=== PATIENT | male | born 1970 | race African-American/Black ===

== ENCOUNTER 2017-10-07 21:04 | Inpatient (IN) | payer OTHER ==
[2017-10-07 21:31] VITALS: BMI 26.6
[2017-10-07] MEDS ORDERED: MELATONIN 5 MG TABLETS PO PRN (22:00)
--- NOTE | 2017-10-07 22:29 | HP ---
COWS - Scale Resting Pulse: 0= [place] 80 or Below Sweatin= Beads of Sweat on Face Restless Observation: 5= Unable to Sit Still Pupil Size: 1= Pupils >than Normal Bone or Joint Aches: 4=Acute Joint/Muscle Pain Runny Nose/ Eye Tearin= Runny Nose/Eyes GI Upset > 30mins: 2= Nausea/Diarrhea Tremor Observation: 4= Gross Tremor/Twitching Yawning Observation: 1= 1-2x During Session Anxiety or Irritability: 4=Extreme Anxiety Goose Flesh Skin: 0=Smooth Skin COWS Score: 26 Admission [facility] Chief Complaint: C/O WITHDRAWAL SX'S SEEKING DETOX Allergies/Adverse Reactions: Allergies Allergy/AdvReac Type Severity Reaction Status Date / Time No Known Allergies Allergy Verified 10/07/17 22:03 History of Present Illness: 47 Y.O. MALE WITH HX/O OPIOID DEPENDENCE FOR THE PAST YEAR HERE FOR DETOX. CLIENT IS REFERRED BY [facility] FOR C/O WITHDRAWAL SX'S. CLIENT STATES THIS IS HIS FIRST DETOX. DENIES ANY SIGNIFICANT PERIOD OF CLEAN TIME. DENIES HX/ O O.OD. SEIZURES, SI/HI. PMHX: DENIES PSYCH: BIPOLAR Exam Limitations: No Limitations - Ebola screening Have you traveled outside of the country in the last 21 days: No (N) Have you had contact with anyone from an Ebola affected area: No Have you been sick,other than usual withdrawal symptoms: No Do you have a fever: No - Review of Systems Constitutional: Chills, Loss of Appetite, Malaise, Night Sweats, Changes in sleep EENT: reports: Tearing, Nose Congestion, Dental Problems (MISSING TEETH) Respiratory: reports: No Symptoms reported Cardiac: reports: No Symptoms Reported GI: reports: Nausea, Poor Appetite, Poor Fluid Intake, Abdominal cramping : reports: No Symptoms Reported Musculoskeletal: reports: Back Pain, Joint Pain Integumentary: reports: No Symptoms Reported Neuro: reports: No Symptoms reported Endocrine: reports: No Symptoms Reported Hematology: reports: No Symptoms Reported Psychiatric: reports: Anxious Other Systems: Reviewed and Negative Patient History - Patient Medical History Hx Anemia: No Hx Asthma: No Hx Chronic Obstructive Pulmonary Disease (COPD): No Hx Cancer: No Hx Cardiac Disorders: No Hx Congestive Heart Failure: No Hx Hypertension: No Hx Hypercholesterolemia: No Hx Pacemaker: No HX Cerebrovascular Accident: No Hx Seizures: No Hx Dementia: No Hx Diabetes: No Hx Gastrointestinal Disorders: No Hx Liver Disease: No Hx Genitourinary Disorders: No Hx Sexually Transmitted Disorders: No Hx Renal Disease (ESRD): No Hx Thyroid Disease: No Hx Human Immunodeficiency Virus (HIV): No Hx Hepatitis C: No Hx Depression: No Hx Suicide Attempt: No Hx Bipolar Disorder: Yes Hx Schizophrenia: No Other Medical History: DENIES - Patient Surgical History Past Surgical History: No - PPD History Previous Implant?: Yes Documented Results: Negative w/o proof Implanted On Prior [facility] Admission?: No PPD to be Administered?: Yes - Smoking Cessation Smoking history: Current every day smoker Have you smoked in the past 12 months: Yes Aproximately how many cigarettes per day: 10 Hx Chewing Tobacco Use: No Initiated information on smoking cessation: Yes 'Breaking Loose' booklet given: 10/07/17 - Substance & Tx. History Hx Alcohol Use: No Hx Substance Use: Yes Substance Use Type: Heroin, Marijuana (K2) Hx Substance Use Treatment: No - Substances Abused Heroin Route: Inhalation Frequency: Daily Amount used: 1 bag Age of first use: 46 Date of Last Use: 10/05/17 K2 Route: Smoking Frequency: Daily Amount used: 1 bag Age of first use: 46 Date of Last Use: 10/05/17 Family Disease History - Family Disease History Family History: Denies Admission Physical Exam S - Vital Signs Vital Signs: Vital Signs - 24 hr 10/07/17 21:29 Temperature 97.7 F Pulse Rate 62 Respiratory 18 Rate Blood Pressure 136/92 - Physical General Appearance: Yes: Disheveled, Moderate Distress, Tremorous, Sweating, Anxious, Other (MALODUROUS) HEENTM: Yes: EOMI, Normocephalic, Normal Voice, CHERI (DIALATED), Pharynx Normal , Other (POOR DENTITION) Respiratory: Yes: Chest Non-Tender, Lungs Clear, Normal Breath Sounds, No Respiratory Distress, No Accessory Muscle Use Neck: Yes: No masses,lesions,Nodules, Supple, Trachea in good position Breast: Yes: Breast Exam Deferred Cardiology: Yes: Regular Rhythm, Regular Rate, S1, S2 Abdominal: Yes: Normal Bowel Sounds, Non Tender, Soft Genitourinary: Yes: Within Normal Limits Back: Yes: Normal Inspection Musculoskeletal: Yes: Gait Steady Extremities: Yes: Normal Capillary Refill, Normal Range of Motion, Non-Tender, Tremors Neurological: Yes: Alert, Motor Strength 5/5 Integumentary: Yes: Warm, Moist (SWEATING), Other (ABRASION TO BLE) Lymphatic: Yes: Within Normal Limits - Diagnostic (1) Opioid dependence with withdrawal Current Visit: Yes Status: Acute (2) Bipolar 1 disorder, depressed Current Visit: Yes Status: Suspected (3) Nicotine dependence Current Visit: Yes Status: Chronic Qualifiers: Nicotine product type: cigarettes Substance use status: uncomplicated Qualified Code(s): F17.210 - Nicotine dependence, cigarettes, uncomplicated (4) Synthetic cannabinoid abuse Current Visit: Yes Status: Suspected Cleared for Admission [facility] - Detox or Rehab [facility] Level of Care: Medically Managed Detox Regimen/Protocol: Methadone Claeared for Rehab Admission: No S Breath Alcohol Content Breath Alcohol Content: 0 Urine Drug Screen - Results Drug Screen Negative: No Urine Drug Screen Results: OPI-Opiates
[2017-10-07] MEDS ORDERED: P-EPHED 60MG/TRIPROLIDI 2.5MG TABLET PO PRN (22:31)
[2017-10-07] MEDS ORDERED: LOPERAMIDE HCL 2 MG CAPSULE PO PRN (22:31)
[2017-10-07] MEDS ORDERED: MENTHOL/PHENOL 1 EACH UD MM PRN (22:31)
[2017-10-07] MEDS ORDERED: MAGNESIUM HYDROX 2400MG/30ML ORAL SUSPENSION 30 ML CUP PO PRN (22:31)
[2017-10-07] MEDS ORDERED: guaiFENesin/D-METHORPHAN HB 10 ML UNIT-DOSE CUPS PO PRN (22:31)
[2017-10-07] MEDS ORDERED: MAGNESIUM CITRATE 300 ML BOTTLE PO PRN (22:31)
[2017-10-07] MEDS ORDERED: NICOTINE POLACRILEX 2 MG GUM BC PRN (22:31)
[2017-10-07] MEDS ORDERED: hydrOXYzine PAMOATE 50 MG CAPSULE (FP) PO PRN (22:31)
[2017-10-07] MEDS ORDERED: MAG HYDROX/AL HYDROX/SIMETH 30 ML UNIT-DOSE CUP PO PRN (22:31)
[2017-10-07] MEDS ORDERED: IBUPROFEN 400 MG TABLET (FP) PO PRN (22:31)
[2017-10-07] MEDS ORDERED: TRIMETHOBENZAMIDE HCL 200MG/2ML INJ IM PRN (22:35)
[2017-10-07] MEDS ORDERED: TRIMETHOBENZAMIDE HCL 200MG/2ML INJ IM ONE (22:45)
[2017-10-07] MEDS ORDERED: METHADONE HCL 10 MG TABLET (FOR DETOX USE ONLY) PO ONE ×2 (22:45→23:00)
[2017-10-07] MEDS: diazePAM 5 MG TABLET PO PRN (23:05)
[2017-10-07] MEDS: ACETAMINOPHEN 325 MG TABLET (FP) PO PRN (23:20)
--- NOTE | 2017-10-08 08:15 | CONSULT ---
[facility] Psychiatric Consult - Data Date of interview: 10/08/17 Admission source: [facility] Identifying data: Mr Gallo is a 47 years old Black male, unemployed on food stamp, homeless seeking detox treatment for opioid and cannabis Substance Abuse History: Reports history of heroin and k2 use. Refer to addiction counselor's summary for further information Medical History: Unremarkable. Smokes 10 cigatrettes daily Psychiatric History: Denies history of previous psychiatric treatment Physical/Sexual Abuse/Trauma History: Denies history of emotional, physical or sexual abuse as well as DV relationship Additional Comment: Reports history of multiple previous arrests including one felony conviction. Denies being on parole/probation at present Mental Status Exam - Mental Status Exam Alert and Oriented to: Time, Place, Person Cognitive Function: Fair Patient Appearance: Disheveled Mood: Depressed (mildly) Affect: Constricted Patient Behavior: Cooperative Speech Pattern: Clear Voice Loudness: Normal Thought Process: Intact, Goal Oriented Hallucinations: Denies Suicidal Ideation: Denies Homicidal Ideation: Denies Insight/Judgement: Poor Sleep: Fair Appetite: Poor Muscle strength/Tone: Normal Gait/Station: Normal Psychiatric Findings - Problem List ([place] 1, 2,3) (1) Substance induced mood disorder Current Visit: Yes Status: Acute (2) Substance-induced sleep disorder Current Visit: Yes Status: Acute (3) Opioid dependence with withdrawal Current Visit: Yes Status: Acute (4) Cannabis abuse Current Visit: Yes Status: Acute (5) Nicotine dependence Current Visit: Yes Status: Chronic Qualifiers: Nicotine product type: cigarettes Substance use status: uncomplicated Qualified Code(s): F17.210 - Nicotine dependence, cigarettes, uncomplicated - Initial Treatment Plan Initial Treatment Plan: 1) Start Ambien 10 mg po HS prn for insomnia. 2) Continue inpatient detoxification
[2017-10-08] MEDS ORDERED: ZOLPIDEM TARTRATE 5 MG TABLET PO PRN (09:47)
[2017-10-08] MEDS ORDERED: METHADONE HCL 10 MG TABLET (FOR DETOX USE ONLY) PO ONE (10:00)
[2017-10-08] MEDS ORDERED: PRENATAL VITAMINS W/ FOLIC ACID TABLET (FP) PO SCH (10:00)
[2017-10-08] MEDS ORDERED: NICOTINE 21 MG/24 HOURS TOPICAL PATCH TD SCH (10:00)
[2017-10-08 11:02] LABS: URINE APPEARANCE CLEAR; URINE BILIRUBIN NEGATIVE (<2.0 mg/dL); URINE BLOOD 1+ (NEGATIVE); URINE COLOR DKYELLOW; URINE GLUCOSE (UA) NEGATIVE (NEGATIVE); URINE KETONE 1+ (NEGATIVE); URINE LEUK ESTERASE NEGATIVE (NEGATIVE); URINE NITRITE NEGATIVE (NEGATIVE); URINE UROBILINOGEN 4.0 E.U/dl mg/dL (0.2-1.0)
[2017-10-08 11:03] LABS: HEMATOCRIT 40.6 % (35.4-49); HEMOGLOBIN 13.6 GM/dL (11.7-16.9); MCH 30.4 pg (25.7-33.7); MCHC 33.5 g/dl (32.0-35.9); MEAN CELL VOLUME 90.9 fl (80-96); MEAN PLT VOLUME 7.6 fl (7.5-11.1); PLATELET COUNT 199 K/MM3 (134-434); RBC 4.46 M/mm3 (4.00-5.60); RDW 13.6 % (11.9-15.9); WHITE BLOOD COUNT 7.2 K/mm3 (4.0-10.0)
[2017-10-08 11:03] LABS: URINE PROTEIN 2+ (NEGATIVE)
[2017-10-08 11:06] LABS: ALBUMIN 3.6 g/dl (3.4-5.0); ANION GAP 7 (8-16); BLOOD UREA NITROGEN 13 mg/dL (7-18); CHLORIDE 103 mmol/L (98-107); CO2 30 mmol/L (21-32); GLUCOSE,RANDOM 94 mg/dL (74-106); POTASSIUM 3.6 mmol/L (3.5-5.1); SGOT/AST 19 U/L (15-37); SGPT/ALT 18 U/L (12-78); SODIUM 140 mmol/L (136-145)
[2017-10-08 11:08] LABS: ALK PHOS 65 U/L (45-117); BILIRUBIN,TOTAL 0.9 mg/dL (0.2-1.0); CALCIUM 8.7 mg/dL (8.5-10.1); CREATININE 0.9 mg/dL (0.7-1.3); TOT PROT 6.5 g/dl (6.4-8.2)
[2017-10-08] MEDS: diazePAM 5 MG TABLET PO PRN (11:17)
[2017-10-08 11:28] LABS: URINE MUCUS RARE
[2017-10-08 13:16] VITALS: BP 120/74; PULSE 55; TEMP 99.2
--- NOTE | 2017-10-08 16:02 | PN ---
[facility] COWS - Scale Resting Pulse: 0= [place] 80 or Below Sweatin= Chills/Flushing Restless Observation: 1= Difficult to Sit Still Pupil Size: 0= Normal to Room Light Bone or Joint Aches: 0= None Runny Nose/ Eye Tearin= None GI Upset > 30mins: 2= Nausea/Diarrhea Tremor Observation of Outstretched Hands: 0= None Yawning Observation: 2= >3x During Session Anxiety or Irritability: 4=Extreme Anxiety Goose Flesh Skin: 3=Piloerection COWS Score: 13 [facility] Progress Note (SOAP) Subjective: Stomach Cramping, Nausea, H/A, Anxious. Objective: PATIENT A & O X 2 (UNCERTAIN ABOUT CURRENT DAY / DATE). PATIENT OBSERVED AMBULATING ON UNIT. NO ACUTE DISTRESS. 10/08/17 15:59 Vital Signs Temperature 99.2 F 10/08/17 13:15 Pulse Rate 55 L 10/08/17 13:15 Respiratory Rate 20 10/08/17 13:15 Blood Pressure 120/74 10/08/17 13:15 O2 Sat by Pulse Oximetry (%) Laboratory Tests 10/08/17 10/08/17 10/08/17 07:40 07:40 07:40 WBC 7.2 RBC 4.46 Hgb 13.6 Hct 40.6 MCV 90.9 MCH 30.4 MCHC 33.5 RDW 13.6 Plt Count 199 MPV 7.6 Sodium 140 Potassium 3.6 Chloride 103 Carbon Dioxide 30 Anion Gap 7 L BUN 13 Creatinine 0.9 Creat Clearance w eGFR > 60 Random Glucose 94 Calcium 8.7 Total Bilirubin 0.9 AST 19 ALT 18 Alkaline Phosphatase 65 Total Protein 6.5 Albumin 3.6 Urine Color Urine Appearance Urine pH Ur Specific [place] Urine Protein Urine Glucose (UA) Urine Ketones Urine Blood Urine Nitrite Urine Bilirubin Urine Urobilinogen Ur Leukocyte Esterase Urine WBC (Auto) Urine RBC (Auto) Urine Mucus RPR Titer Nonreactive 10/08/17 08:15 WBC RBC Hgb Hct MCV MCH MCHC RDW Plt Count MPV Sodium Potassium Chloride Carbon Dioxide Anion Gap BUN Creatinine Creat Clearance w eGFR Random Glucose Calcium Total Bilirubin AST ALT Alkaline Phosphatase Total Protein Albumin Urine Color Dkyellow Urine Appearance Clear Urine pH 6.0 Ur Specific [place] 1.029 Urine Protein 2+ H Urine Glucose (UA) Negative Urine Ketones 1+ H Urine Blood 1+ H Urine Nitrite Negative Urine Bilirubin Negative Urine Urobilinogen 4.0 e.u/dl Ur Leukocyte Esterase Negative Urine WBC (Auto) 2 Urine RBC (Auto) 23 Urine Mucus Rare RPR Titer LABS NOTED. Assessment: 10/08/17 16:00 WITHDRAWAL SYMPTOMS. Plan: CONTINUE DETOX. PRN TIGAN IM FOR NAUSEA / VOMITING. INCREASE DAILY PO FLUID INTAKE. REPEAT UA FOR ADMISSION ABNORMALITIES.
[2017-10-08] MEDS: ACETAMINOPHEN 325 MG TABLET (FP) PO PRN (17:33)
--- NOTE | 2017-10-08 17:47 | DS ---
[facility] Detox Discharge Summary Admission Date: 10/07/17 Discharge Date: 10/08/17 - History Present History: Cannabis Dependence, Opioid Dependence Additional Comments: Patient refuses to continue detox. Signed out AMA. Patient denies suicidal / homicidal ideation. Patient informed of the risk of not completing treatment which can include . Patient advise of worsening symptoms to follow up with local ED, urgent care or PMD.Patient verbalizes understanding. Pertinent Past History: Vital Signs Temperature 99.2 F 10/08/17 13:15 Pulse Rate 55 L 10/08/17 13:15 Respiratory Rate 20 10/08/17 13:15 Blood Pressure 120/74 10/08/17 13:15 O2 Sat by Pulse Oximetry (%) Laboratory Last Values WBC 7.2 K/mm3 (4.0-10.0) 10/08/17 07:40 RBC 4.46 M/mm3 (4.00-5.60) 10/08/17 07:40 Hgb 13.6 GM/dL (11.7-16.9) 10/08/17 07:40 Hct 40.6 % (35.4-49) 10/08/17 07:40 MCV 90.9 fl (80-96) 10/08/17 07:40 MCH 30.4 pg (25.7-33.7) 10/08/17 07:40 MCHC 33.5 g/dl (32.0-35.9) 10/08/17 07:40 RDW 13.6 % (11.9-15.9) 10/08/17 07:40 Plt Count 199 K/MM3 (134-434) 10/08/17 07:40 MPV 7.6 fl (7.5-11.1) 10/08/17 07:40 Sodium 140 mmol/L (136-145) 10/08/17 07:40 Potassium 3.6 mmol/L (3.5-5.1) 10/08/17 07:40 Chloride 103 mmol/L (98-107) 10/08/17 07:40 Carbon Dioxide 30 mmol/L (21-32) 10/08/17 07:40 Anion Gap 7 (8-16) L 10/08/17 07:40 BUN 13 mg/dL (7-18) 10/08/17 07:40 Creatinine 0.9 mg/dL (0.7-1.3) 10/08/17 07:40 Creat Clearance w eGFR > 60 (>60) 10/08/17 07:40 Random Glucose 94 mg/dL (74-106) 10/08/17 07:40 Calcium 8.7 mg/dL (8.5-10.1) 10/08/17 07:40 Total Bilirubin 0.9 mg/dL (0.2-1.0) 10/08/17 07:40 AST 19 U/L (15-37) 10/08/17 07:40 ALT 18 U/L (12-78) 10/08/17 07:40 Alkaline Phosphatase 65 U/L (45-117) 10/08/17 07:40 Total Protein 6.5 g/dl (6.4-8.2) 10/08/17 07:40 Albumin 3.6 g/dl (3.4-5.0) 10/08/17 07:40 Urine Color Dkyellow 10/08/17 08:15 Urine Appearance Clear 10/08/17 08:15 Urine pH 6.0 (5.0-8.0) 10/08/17 08:15 Ur Specific [place] 1.029 (1.001-1.035) 10/08/17 08:15 Urine Protein 2+ (NEGATIVE) H 10/08/17 08:15 Urine Glucose (UA) Negative (NEGATIVE) 10/08/17 08:15 Urine Ketones 1+ (NEGATIVE) H 10/08/17 08:15 Urine Blood 1+ (NEGATIVE) H 10/08/17 08:15 Urine Nitrite Negative (NEGATIVE) 10/08/17 08:15 Urine Bilirubin Negative (<2.0 mg/dL) 10/08/17 08:15 Urine Urobilinogen 4.0 e.u/dl mg/dL (0.2-1.0) 10/08/17 08:15 Ur Leukocyte Esterase Negative (NEGATIVE) 10/08/17 08:15 Urine WBC (Auto) 2 /hpf (3-5) 10/08/17 08:15 Urine RBC (Auto) 23 /hpf (0-3) 10/08/17 08:15 Urine Mucus Rare 10/08/17 08:15 RPR Titer Nonreactive (NONREACTIVE) 10/08/17 07:40 - Physical Exam Results Vital Signs: Vital Signs Temperature 99.2 F 10/08/17 13:15 Pulse Rate 55 L 10/08/17 13:15 Respiratory Rate 20 10/08/17 13:15 Blood Pressure 120/74 10/08/17 13:15 O2 Sat by Pulse Oximetry (%) - Medication Discharge Medications: Ambulatory Orders NK [No Known Home Medication] 10/07/17 - Diagnosis (1) Cannabis abuse Current Visit: Yes Status: Acute (2) Opioid dependence with withdrawal Current Visit: Yes Status: Acute (3) Nicotine dependence Current Visit: Yes Status: Chronic Qualifiers: Nicotine product type: cigarettes Substance use status: uncomplicated Qualified Code(s): F17.210 - Nicotine dependence, cigarettes, uncomplicated - AMA Did Patient Leave Against Medical Advice: Yes
[2017-10-08] MEDS ORDERED: THIAMINE HCL 100 MG TABLET (FP) PO SCH (22:00)
--- NOTE | 2017-10-08 22:41 | EKG ---
Test Reason : Blood Pressure : / mmHG Vent. Rate : 052 BPM Atrial Rate : 052 BPM P-R Int : 166 ms QRS Dur : 094 ms QT Int : 442 ms P-R-T Axes : 070 054 029 degrees QTc Int : 411 ms SINUS BRADYCARDIA VOLTAGE CRITERIA FOR LEFT VENTRICULAR HYPERTROPHY ABNORMAL ECG NO PREVIOUS ECGS AVAILABLE Confirmed by MAYO CASTILLO MD ([id number]) on 10/08/2017 10:41:06 PM Referred By: Confirmed By:MAYO CASTILLO MD
[2017-10-09] MEDS ORDERED: METHADONE HCL 5 MG TABLET (FOR DETOX USE ONLY) PO ONE (10:00)
[2017-10-10] MEDS ORDERED: METHADONE HCL 5 MG TABLET (FOR DETOX USE ONLY) PO ONE (10:00)
[2017-10-11] MEDS ORDERED: METHADONE HCL 10 MG TABLET (FOR DETOX USE ONLY) PO ONE (10:00)
[2017-10-12] MEDS ORDERED: METHADONE HCL 5 MG TABLET (FOR DETOX USE ONLY) PO ONE (06:00)
== END 2017-10-08 18:01 | disposition left against medical advice (07) | DRG 770 ==
LOC: YASAS 21:04 → Y3N 22:19
PROVIDERS: ADMIT Surgery; ATTEND Surgery
PROC: HZ2ZZZZ Detoxification Services for Substance Abuse Treatment (ICD-10-PCS; principal; 2017-10-07)
DX: F11.23 Opioid dependence with withdrawal (principal); F12.10 Cannabis abuse, uncomplicated; F17.210 Nicotine dependence, cigarettes, uncomplicated; F31.89 Other bipolar disorder; F19.24 Other psychoactive substance dependence with psychoactive substance-induced mood disorder; F19.282 Other psychoactive substance dependence with psychoactive substance-induced sleep disorder
CPT/HCPCS: 36415; 80053; 81003; 81015; 85027; 86593; 93005; 93010